=== PATIENT | female | born 2000 | race Asian ===

== ENCOUNTER 2020-01-28 10:51 | Observation (INO) ==
[2020-01-28] MEDS ORDERED: SODIUM CHLORIDE 0.9% 1000ML 1,000 ML IV ONE (11:38)
--- NOTE | 2020-01-28 11:46 | Emergency Department Note ---
History of Present Illness General Chief Complaint: Abdominal Pain Stated Complaint: ABD PAIN Source: patient Mode of arrival: ambulatory Limitations: no limitations History of Present Illness Provider Complaint: abdominal pain Onset (ago): 2 day(s) Pain Consistency: intermittent Location: periumbilical Radiation: RLQ Migration to: RLQ Severity: moderate Maximum Pain Intensity: 5 Current Pain Intensity: 5 Quality: + sharp Relieved By: + nothing Exacerbated By: + nothing Associated Symptoms: + anorexia Treatments prior to arrival: none This 20-year-old female patient presents the emergency department today as a referral from [facility] for evaluation of lower abdominal pain. Pt. states 2 days ago, she developed lower abdominal pain which this morning, radiates to the RLQ. Pt. states this morning, she had an elevated temperature of 37.8 C. Pt. does report decreased appetitie this morning and did not eat breakfast. She did have porridge for dinner last evening and tolerated this okay. She did have some mild nausea 2 days ago. Last bowel movement was 2 days ago. Last menstrual period was 2 months ago, the patient does occasionally get irregular menstrual periods due to PCOS. She is not sexually active. This morning, she states there was some suprapubic abdominal pain with urination. Patient has taken no medications for her pain. She denies any chest pain, dyspnea, nausea, vomiting, dysuria, hematuria, urinary frequency, abnormal vaginal discharge or bleeding, or other concerning symptoms. Home Medications Home Medications Medication Instructions Recorded Confirmed Type amoxicillin 500 mg PO BID 01/28/20 01/28/20 History Allergies Allergy/AdvReac Type Severity Reaction Status Date / Time lillian AdvReac Severe lips Verified 01/28/20 15:36 swell, red face Past Med/Surg History Medical History PCOS (polycystic ovarian syndrome) Social History Feels Safe at Home: Yes Smoking Status: Never smoker Review of Systems A total of 10 systems reviewed and were otherwise negative Physical Exam Vital Signs: Vital Signs - 24 hr 01/28/20 11:18 01/28/20 12:30 01/28/20 13:00 Temperature 37.4 C Temperature Source Oral Pulse Rate 94 H 115 H 118 H Pulse Rate [Right Finger] Pulse Rate from Sp O2 Sensor 112 H 117 H Pulse Rhythm [Righ t Finger] Pulse Strength [Ri ght Finger] Respiratory Rate 20 16 20 Respiratory Effort / Characteristics Non-Labored Sponta neous Respiratory Depth Normal Respiratory Patter n Regular Blood Pressure 124/69 133/77 129/68 Blood Pressure [Le ft Arm] Blood Pressure Magdalena n 87 100 86 Blood Pressure Magdalena n [Left Arm] Blood Pressure Pos ition [Left Arm] Pulse Oximetry 99 98 98 Oxygen Delivery Me thod Room Air Sepsis Recent Feve r Within 48 Hours No Sepsis New/Unexpla ined Change in Men meri Status No Sepsis Action Take n by Nursing No Action Required 01/28/20 13:01 01/28/20 13:30 01/28/20 14:00 Temperature Temperature Source Pulse Rate 116 H 112 H 106 H Pulse Rate [Right Finger] Pulse Rate from Sp O2 Sensor 116 H 114 H 108 H Pulse Rhythm [Righ t Finger] Pulse Strength [Ri ght Finger] Respiratory Rate 19 21 22 Respiratory Effort / Characteristics Respiratory Depth Respiratory Patter n Blood Pressure 126/75 121/68 Blood Pressure [Le ft Arm] Blood Pressure Magdalena n 81 87 Blood Pressure Magdalena n [Left Arm] Blood Pressure Pos ition [Left Arm] Pulse Oximetry 98 98 97 Oxygen Delivery Me thod Sepsis Recent Feve r Within 48 Hours Sepsis New/Unexpla ined Change in Men meri Status Sepsis Action Take n by Nursing 01/28/20 14:30 01/28/20 15:00 01/28/20 15:39 Temperature 37.5 C Temperature Source Oral Pulse Rate 109 H 100 H Pulse Rate [Right Finger] 114 H Pulse Rate from Sp O2 Sensor 108 H 101 H Pulse Rhythm [Righ t Finger] Regular Pulse Strength [Ri ght Finger] Normal Respiratory Rate 20 18 18 Respiratory Effort / Characteristics Non-Labored Sponta neous Respiratory Depth Normal Respiratory Patter n Regular Blood Pressure 129/73 125/70 Blood Pressure [Le ft Arm] 123/80 Blood Pressure Magdalena n 88 88 Blood Pressure Magdalena n [Left Arm] 94 Blood Pressure Pos ition [Left Arm] Lying Pulse Oximetry 97 99 99 Oxygen Delivery Me thod Room Air Sepsis Recent Feve r Within 48 Hours Sepsis New/Unexpla ined Change in Men meri Status Sepsis Action Take n by Nursing Physical Exam: VITALS: Vitals are noted on the nurse's note and reviewed by myself. Vital signs stable. GENERAL: This is a 20-year-old female, in no acute distress, nondiaphoretic, well-developed well-nourished. SKIN: The skin was without rashes, erythema, edema, or bruising. There is no tenting of the skin. Capillary refill less than 2 seconds. HEAD: Normocephalic atraumatic. EYES: Conjunctivae without injection, sclerae without icterus. NECK: Supple without nuchal rigidity. No lymphadenopathy. HEART: Regular rate and rhythm without murmurs gallops or rubs. LUNGS: Clear to auscultation bilaterally without wheezes, rales or rhonchi. No retractions or accessory muscle use. ABDOMEN: Positive bowel sounds x 4. Normal tympanic percussion. Mild right lower quadrant tenderness palpation. Abdomen is otherwise soft, nontender, without masses or organomegaly. [place] sign negative. No guarding or rebound tenderness. MUSCULOSKELETAL: No muscle atrophy, erythema, or edema noted. Full range of motion without joint tenderness in all extremities. No tenderness to palpation. Normal gait. Strength 5/5 throughout. NEURO: Patient was alert and oriented to person place and time. No focal neurological deficits. Course Course The patient was seen and evaluated as above. Patient offered analgesics and declined. An order was placed for continuous cardiac monitoring. The monitor shows a normal sinus rhythm at a rate of 84 bpm. IV access obtained, labs drawn. Patient hydrated with IV fluids. Labs reviewed by myself. Imaging performed and reviewed by myself and radiologist as noted. I discussed the findings with the patient at bedside. I discussed the case with Dr. Hernandez, general surgeon security operations center operator. He did agree to see and evaluate the patient for appendectomy. The patient was taken to the operating room with Dr. Hernandez. Please see surgeon dictation regarding ongoing management and care of this patient. Administered Medications Ioversol (Optiray 320 100ml) 94 ml IV ONCE PRN PRN Reason: Interaction Checking Stop: 02/01/20 14:17 Last Admin: 01/28/20 14:19 Dose: 94 ml Documented by: [id number] Discontinued Medications Sodium Chloride (Nss 1000ml) 1,000 mls @ 999 mls/hr IV .Q1H1M ONE Stop: 01/28/20 12:38 Last Infusion: 01/28/20 13:26 Dose: 0 mls/hr Documented by: [id number] Admin: 01/28/20 12:07 Dose: 999 mls/hr Documented by: [id number] Medical Decision Making Differential Diagnosis + peptic ulcer disease, + biliary pathology, + UTI, + obstruction, + mesenteric ischemia, + aortic pathology, + infections, + inflammatory bowel disease, + renal colic, + ectopic (female), + ovarian torsion (female), + tubo- ovarian abscesses (female), + pelvic inflammatory disease (female), + abdominal pain, + appendicitis, + calculus of kidney, + constipation, + diverticulitis, + endometriosis, + gastroenteritis, + pancreatitis and + small bowel obstruction Home Medications Current Medication List: was personally reviewed by me Laboratory Data Attestation: I reviewed the patient's lab results. Leukocytosis of 13,000. Coags normal. Renal, hepatic function and electrolytes without significant abnormality. Coags normal. Lipase 66. Urinalysis positive for 4+ ketones, but no clear evidence of infection. hCG negative. Result diagrams: 01/28/20 11:55 01/28/20 11:55 Lab Results 01/28/20 01/28/20 01/28/20 Range/Units 11:55 11:55 11:55 WBC 13.86 H (4.8-10.8) K/uL RBC 4.52 (4.2-5.4) M/uL Hgb 14.7 (12.0-16.0) g/dL Hct 42.4 (37-47) % MCV 93.8 (80-100) fL MCH 32.5 (25-34) pg MCHC 34.7 (32-36) g/dL RDW Std Deviation 43.0 (36.4-46.3) fL RDW Coeff of Kassi 12.5 (11.5-14.5) % Plt Count 155 (130-400) K/uL MPV 10.4 (7.4-10.4) fL Immature Gran % (Auto) 0.2 % Neut % (Auto) 96.5 % Lymph % (Auto) 2.3 % Weber % (Auto) 0.9 % Eos % (Auto) 0.0 % Baso % (Auto) 0.1 % Neut # (Auto) 13.38 H (1.4-6.5) K/uL Lymph # (Auto) 0.32 L (1.2-3.4) K/uL Weber # (Auto) 0.12 (0.11-0.59) K/uL Eos # (Auto) 0.00 (0-0.5) K/uL Baso # (Auto) 0.01 (0-0.2) K/uL Immature Gran # (Auto) 0.03 H (0.00-0.02) K/uL PT 10.9 (9.0-12.0) Seconds INR 1.0 (0.9-1.1) APTT 27.9 (21.0-31.0) Seconds PTT Ratio 1.0 Sodium 136 (136-145) mmol/L Potassium 3.9 (3.5-5.1) mmol/L Chloride 103 (98-107) mmol/L Carbon Dioxide 24 (21-32) mmol/L Anion Gap 9 (3-11) BUN 9 (7-18) mg/dl Creatinine 0.90 (0.6-1.2) mg/dl Est Cr Clr Drug Dosing 84.7 ml/min Est GFR ( Amer) 105.2 Est GFR (Non-Af Amer) 90.8 BUN/Creatinine Ratio 10.5 (10-20) Glucose 99 (70-99) mg/dl Calcium 9.5 (8.5-10.1) mg/dl Total Bilirubin 1.3 H (0.2-1) mg/dl AST 17 (15-37) U/L ALT 18 (12-78) U/L Alkaline Phosphatase 54 (45-117) U/L Total Protein 8.7 H (6.4-8.2) gm/dl Albumin 4.5 (3.4-5.0) gm/dl Globulin 4.2 H (2.5-4.0) gm/dl Albumin/Globulin Ratio 1.1 (0.9-2) Lipase 66 L (73-393) U/L HCG, Qual (Negative) Specimen Hemolysis Urine Color Urine Appearance (Clear) Urine pH (4.5-7.5) Ur Specific [place] (1.000-1.030) Urine Protein (Negative) Urine Glucose (UA) (Negative) Urine Ketones (Negative) Urine Blood (Negative) Urine Nitrite (Negative) Urine Bilirubin (Negative) Urine Urobilinogen (Negative) Ur Leukocyte Esterase (Negative) Urine WBC (Auto) (0-5) /hpf Urine RBC (Auto) (0-4) /hpf U Hyaline Cast (Auto) (0-5) /lpf U Epithel Cells (Auto) (0-5) /lpf Urine Bacteria (Auto) (Negative) 01/28/20 01/28/20 Range/Units 11:55 12:15 WBC (4.8-10.8) K/uL RBC (4.2-5.4) M/uL Hgb (12.0-16.0) g/dL Hct (37-47) % MCV (80-100) fL MCH (25-34) pg MCHC (32-36) g/dL RDW Std Deviation (36.4-46.3) fL RDW Coeff of Kassi (11.5-14.5) % Plt Count (130-400) K/uL MPV (7.4-10.4) fL Immature Gran % (Auto) % Neut % (Auto) % Lymph % (Auto) % Weber % (Auto) % Eos % (Auto) % Baso % (Auto) % Neut # (Auto) (1.4-6.5) K/uL Lymph # (Auto) (1.2-3.4) K/uL Weber # (Auto) (0.11-0.59) K/uL Eos # (Auto) (0-0.5) K/uL Baso # (Auto) (0-0.2) K/uL Immature Gran # (Auto) (0.00-0.02) K/uL PT (9.0-12.0) Seconds INR (0.9-1.1) APTT (21.0-31.0) Seconds PTT Ratio Sodium (136-145) mmol/L Potassium (3.5-5.1) mmol/L Chloride (98-107) mmol/L Carbon Dioxide (21-32) mmol/L Anion Gap (3-11) BUN (7-18) mg/dl Creatinine (0.6-1.2) mg/dl Est Cr Clr Drug Dosing ml/min Est GFR ( Amer) Est GFR (Non-Af Amer) BUN/Creatinine Ratio (10-20) Glucose (70-99) mg/dl Calcium (8.5-10.1) mg/dl Total Bilirubin (0.2-1) mg/dl AST (15-37) U/L ALT (12-78) U/L Alkaline Phosphatase (45-117) U/L Total Protein (6.4-8.2) gm/dl Albumin (3.4-5.0) gm/dl Globulin (2.5-4.0) gm/dl Albumin/Globulin Ratio (0.9-2) Lipase (73-393) U/L HCG, Qual Negative (Negative) Specimen Hemolysis Urine Color [place] Urine Appearance Clear (Clear) Urine pH 5.5 (4.5-7.5) Ur Specific [place] 1.020 (1.000-1.030) Urine Protein Negative (Negative) Urine Glucose (UA) Negative (Negative) Urine Ketones 4+ H (Negative) Urine Blood Trace H (Negative) Urine Nitrite Negative (Negative) Urine Bilirubin Negative (Negative) Urine Urobilinogen Negative (Negative) Ur Leukocyte Esterase Negative (Negative) Urine WBC (Auto) 1-5 (0-5) /hpf Urine RBC (Auto) 5-10 H (0-4) /hpf U Hyaline Cast (Auto) 1-5 (0-5) /lpf U Epithel Cells (Auto) >30 H (0-5) /lpf Urine Bacteria (Auto) Negative (Negative) Imaging Data Radiologist's Impression: ABDOMEN AND PELVIS CT WITH IV AND ORAL CONTRAST CT DOSE: 284.97 mGy.cm HISTORY: Right lower quadrant pain. TECHNIQUE: Multiaxial CT images of the abdomen and pelvis were performed following the use of intravenous and oral contrast. A dose lowering technique was utilized adhering to the principles of ALARA. COMPARISON STUDY: None. FINDINGS: The lung bases are clear. No pneumoperitoneum. No pneumatosis. No fractures within the visualized osseous structures. The liver, gallbladder, pancreas, spleen, adrenal glands, and kidneys are unremarkable. No hydronephrosis. No retroperitoneal lymphadenopathy. The bladder is unremarkable. Trace pelvic free fluid. The uterus and ovaries are within normal limits. No evidence for bowel obstruction. Fluid-filled and dilated appendix with mild periappendiceal fat stranding. The tip of the appendix measures up to 1 cm this is best seen on image 314 within the right lower quadrant. This is medial to the iliac vessels. This is consistent with acute appendicitis. No perforation or abscess. IMPRESSION: 1. Acute appendicitis. 2. Trace pelvic free fluid. ACT 112: Negative or not required by law. Electronically signed by: Eugenio Nunn M.D. 01/28/2020 2:33 PM Blood Pressure Blood Pressure Findings: Normal blood pressure MDM Narrative This 20-year-old female patient presents the emergency department today for evaluation of right lower quadrant abdominal pain. Work-up here in the ED is consistent with acute appendicitis. Patient does have a leukocytosis of 13,000. CT imaging consistent with acute appendicitis without perforation or abscess. Patient declined any narcotic analgesics while here in the department. She was hydrated with IV fluids. I discussed the case with Dr. Hernandez, general surgeon on-call. He did agree to see and evaluate the patient for appendectomy. Please see his dictation regarding ongoing management care of this patient. The chart was completed utilizing [employer] voice recognition software. Grammatical errors, random word insertions, pronoun errors, and incomplete sentences are an occasional consequence of this system due to software limitations, ambient noise, and hardware issues. Any formal questions or concerns about the content, text, or information contained within the body of this dictation should be directly addressed to the provider for clarification. Impression & Plan Appendicitis, acute Discharge Plan Visit Data *Final* Discharge Date/Time: 01/28/20 14:59 Chief Complaint: Abdominal Pain Stated Complaint: ABD PAIN ED Provider: Jhon Martinez ED Midlevel Provider: Cristin Bhatti Discharge Problem: Appendicitis, acute Patient Disposition: Admitted As Inpatient Condition: Good Discharge Instructions Interventions: ED Discharge Assessment Last Done: 01/28/20 14:59
[2020-01-28 12:10] LABS: Basophils # (auto) 0.01 K/uL (0-0.2); Basophils % (auto) 0.1 %; Hematocrit (blood only) 42.4 % (37-47); Hemoglobin 14.7 g/dL (12.0-16.0); Immature Granulocytes # (auto) 0.03 K/uL (0.00-0.02); Immature Granulocytes % (auto) 0.2 %; Lymphocytes # (auto) 0.32 K/uL (1.2-3.4); Lymphocytes % (auto) 2.3 %; Mean Corpuscular Hemoglobin 32.5 pg (25-34); Mean Corpuscular Hgb Conc 34.7 g/dL (32-36); Mean Corpuscular Volume 93.8 fL (80-100); Mean Platelet Volume 10.4 fL (7.4-10.4); Monocytes # (auto) 0.12 K/uL (0.11-0.59); Monocytes % (auto) 0.9 %; Neutrophils # (auto) 13.38 K/uL (1.4-6.5); Neutrophils % (auto) 96.5 %; Platelet Count 155 K/uL (130-400); RDW Coefficient of Variation 12.5 % (11.5-14.5); Red Blood Count 4.52 M/uL (4.2-5.4); White Blood Count 13.86 K/uL (4.8-10.8)
[2020-01-28 12:26] LABS: Partial Thromboplastin Time 27.9 Seconds (21.0-31.0); Prothrombin Time 10.9 Seconds (9.0-12.0)
[2020-01-28 12:38] LABS: Pregnancy Test, Serum Negative (Negative)
[2020-01-28 12:41] LABS: Albumin Globulin Ratio 1.1 (0.9-2); Albumin Level 4.5 gm/dl (3.4-5.0); BUN Creatinine Ratio 10.5 (10-20); Bilirubin,Total 1.3 mg/dl (0.2-1); Calcium 9.5 mg/dl (8.5-10.1); Creatinine Clr Calc Pharmacy 84.7 ml/min; Est GFR (African American) 105.2; Est GFR (Non-African American) 90.8; Globulin 4.2 gm/dl (2.5-4.0); Total Protein 8.7 gm/dl (6.4-8.2)
[2020-01-28 12:44] LABS: Appearance Urine Clear (Clear); Bacteria Urine Automated Negative (Negative); Bilirubin Urine Negative (Negative); Blood Urine Trace (Negative); Color Urine Orange; Epithelial Cell Urine Auto >30 /lpf (0-5); Glucose Urine UA Negative (Negative); Ketones Urine 4+ (Negative); Leukocyte Esterase Urine Negative (Negative); Nitrite Urine Negative (Negative); Protein Urine Negative (Negative); Urobilinogen Urine Negative (Negative); pH Urine 5.5 (4.5-7.5)
[2020-01-28 13:01] LABS: Potassium 3.9 mmol/L (3.5-5.1)
[2020-01-28] MEDS ORDERED: IOVERSOL 100ml IV PRN (14:18)
--- NOTE | 2020-01-28 14:34 | CT Scan Report ---
ABDOMEN AND PELVIS CT WITH IV AND ORAL CONTRAST CT DOSE: 284.97 mGy.cm HISTORY: Right lower quadrant pain. TECHNIQUE: Multiaxial CT images of the abdomen and pelvis were performed following the use of intrave nous and oral contrast. A dose lowering technique was utilized adhering to the principles of ALARA. COMPARISON STUDY: None. FINDINGS: The lung bases are clear. No pneumoperitoneum. No pneumatosis. No fractures within the visu alized osseous structures. The liver, gallbladder, pancreas, spleen, adrenal glands, and kidneys are unremarkable. No hydronephrosis. No retroperitoneal lymphadenopathy. The bladder is unremarkable. Tra ce pelvic free fluid. The uterus and ovaries are within normal limits. No evidence for bowel obstruct ion. Fluid-filled and dilated appendix with mild periappendiceal fat stranding. The tip of the append ix measures up to 1 cm this is best seen on image 314 within the right lower quadrant. This is medial to the iliac vessels. This is consistent with acute appendicitis. No perforation or abscess. IMPRESSION: 1. Acute appendicitis. 2. Trace pelvic free fluid. ACT 112: Negative or not required by law. Electronically signed by: Eugenio Nunn M.D. 01/28/2020 2:33 PM
--- NOTE | 2020-01-28 15:08 | History & Physical Report ---
Date of Service January 28, 2020 Assessment & Plan (1) Appendicitis, acute: IV mefoxin IVF to OR for lap appendectomy Present on Admission?: Yes History of Present Illness Primary Care Provider: [facility] This is a 20-year-old female patient with lower abdominal pain. She said it began 2 days ago and is mainly RLQ. She has had an elevated temperature of 37.8 C. She also has anorexia this morning and did not eat breakfast. She did has nausea andher last bowel movement was 2 days ago. Last menstrual period was 2 months ago, the patient does occasionally get irregular menstrual periods due to PCOS. She is not sexually active. She denies any chest pain, dyspnea, nausea, vomiting, dysuria, hematuria, urinary frequency, abnormal vaginal discharge or bleeding, or other concerning symptoms. Allergies Allergy/AdvReac Type Severity Reaction Status Date / Time lillian AdvReac Severe lips Unverified 01/28/20 12:25 swell, red face Home Medications Home Medications Medication Instructions Recorded Confirmed Type amoxicillin 500 mg PO BID 01/28/20 01/28/20 History Past Med/Surg History Medical History PCOS (polycystic ovarian syndrome) Social History Feels Safe at Home: Yes Smoking Status: Never smoker Review of Systems + fever and + anorexia; no chills no problem reported no problem reported no cough and no dyspnea no chest pain + abdominal pain and + nausea; no vomiting no dysuria no back pain no rash no problem reported no problem reported + problem reported PCOS no problem reported no problem reported Physical Exam Constitutional: well developed and well nourished Eyes: PERRL, conjunctivae normal, anicteric sclerae Neck: trachea midline Respiratory: normal respiratory effort, lungs clear to auscultation Cardiovascular: RRR, no murmur, no edema Gastrointestinal (Abdomen): Inspection/Auscultation: abdomen normal to inspection and normal bowel sounds; abdomen not distended Percussion/Palpation: + abdomen tender and abdomen soft; no guarding and abdomen not rigid Skin: no rashes, warm and dry Psychiatric: Orientation: alert and oriented x 3 Lymphatic: no lymphadenopathy ASA Classification ASA [id number] Results & Data Vital Signs (Past 12 Hours) Vital Signs Temp Pulse Resp BP Pulse Ox 01/28/20 14:00 106 H 22 121/68 97 01/28/20 13:30 112 H 21 126/75 98 01/28/20 13:01 116 H 19 98 01/28/20 13:00 118 H 20 129/68 98 01/28/20 12:30 115 H 16 133/77 98 01/28/20 11:18 37.4 C 94 H 20 124/69 99 Diagnostic Findings ABDOMEN AND PELVIS CT WITH IV AND ORAL CONTRAST CT DOSE: 284.97 mGy.cm HISTORY: Right lower quadrant pain. TECHNIQUE: Multiaxial CT images of the abdomen and pelvis were performed following the use of intravenous and oral contrast. A dose lowering technique was utilized adhering to the principles of ALARA. COMPARISON STUDY: None. FINDINGS: The lung bases are clear. No pneumoperitoneum. No pneumatosis. No fractures within the visualized osseous structures. The liver, gallbladder, pancreas, spleen, adrenal glands, and kidneys are unremarkable. No hydronephrosis. No retroperitoneal lymphadenopathy. The bladder is unremarkable. Trace pelvic free fluid. The uterus and ovaries are within normal limits. No evidence for bowel obstruction. Fluid-filled and dilated appendix with mild periappendiceal fat stranding. The tip of the appendix measures up to 1 cm this is best seen on image 314 within the right lower quadrant. This is medial to the iliac vessels. This is consistent with acute appendicitis. No perforation or abscess. IMPRESSION: 1. Acute appendicitis. 2. Trace pelvic free fluid.
[2020-01-28] MEDS ORDERED: cefOXitin 1,000 MG/50 ML BAG IV ONE (15:14)
[2020-01-28] MEDS ORDERED: NEOSTIGMINE METHYLSULFATE 5 MG/5 ML SYR ONE (15:30)
[2020-01-28] MEDS ORDERED: DEXAMETHASONE SOD INJ 4 MG/ML VIAL ONE (15:30)
[2020-01-28] MEDS ORDERED: MIDAZOLAM HCL 1 MG/ML 2ML VIAL ONE (15:30)
[2020-01-28] MEDS ORDERED: ONDANSETRON INJ 2 MG/ML 2 ML VIAL ONE (15:30)
[2020-01-28] MEDS ORDERED: ROCURONIUM BROMIDE 10 MG/ML 5 ML VIAL IV ONE (15:30)
[2020-01-28] MEDS ORDERED: PROPOFOL IV EMULSION 10 MG/ML 20 ML VIAL IV ONE (15:30)
[2020-01-28] MEDS ORDERED: GLYCOPYRROLATE 0.2 MG/ML VIAL ONE (15:30)
[2020-01-28] MEDS ORDERED: LIDOCAINE HCL 2% 2 ML VIAL/AMP(20MG/ML) INFIL ONE (15:30)
[2020-01-28] MEDS ORDERED: fentaNYL citrate 100 MCG/2 ML VIAL ONE ×2 (15:31→16:37)
[2020-01-28] MEDS ORDERED: LARYING-O-JET KIT (LTA) ONE (15:33)
[2020-01-28] MEDS ORDERED: EPINEPHrine INJ 1 MG/ML AMP ONE (15:37)
[2020-01-28] MEDS ORDERED: BUPIVACAINE 0.5 % 5 MG/1 ML MPF 30ML VIAL ONE (15:37)
--- NOTE | 2020-01-28 15:49 | Anesthesiology Consultation ---
Date of Service January 28, 2020 Assessment & Plan Chart Review Chart Review: Acceptable Risk for Surgery Consults Requested none History Surgery Operation Date: 01/28/20 14:45 Proposed Procedures p Laparoscopic Appendectomy - Alexei Hernandez MD Height/Weight Height: 5 ft 5 in Weight: 54.7 kg Allergies Allergy/AdvReac Type Severity Reaction Status Date / Time lillian AdvReac Severe lips Verified 01/28/20 15:36 swell, red face Medications Home Medications Medication Instructions Recorded Confirmed Last Taken amoxicillin 500 mg PO BID 01/28/20 01/28/20 01/28/20 06:00 Active Medications Generic Name Dose Route Start Last Admin Trade Name Freq PRN Reason Stop Dose Admin Ioversol 94 ml 01/28/20 14:18 01/28/20 14:19 Optiray 320 100ml IV 02/01/20 14:17 94 ml ONCE PRN Administration Interaction Checking NPO Date Last Intake of Fluids: 01/27/20 Time Last Intake of Fluids: 17:00 Date Last Intake of Solids: 01/27/20 Time Last Intake of Solids: 17:00 Past Medical History Medical History PCOS (polycystic ovarian syndrome) Social History Smoking Status: Never smoker Physical Exam Vital Signs Last Vital Signs Temp 37.5 C 01/28/20 15:39 Pulse 114 H 01/28/20 15:39 Resp 18 01/28/20 15:39 BP 123/80 01/28/20 15:39 Pulse Ox 99 01/28/20 15:39 Testing Laboratory Results 01/28/20 11:55 01/28/20 11:55 PT 10.9 Seconds (9.0-12.0) 01/28/20 11:55 INR 1.0 (0.9-1.1) 01/28/20 11:55 APTT 27.9 Seconds (21.0-31.0) 01/28/20 11:55 Urine Color [place] 01/28/20 12:15 Urine Appearance Clear (Clear) 01/28/20 12:15 Urine pH 5.5 (4.5-7.5) 01/28/20 12:15 Ur Specific [place] 1.020 (1.000-1.030) 01/28/20 12:15 Urine Protein Negative (Negative) 01/28/20 12:15 Urine Glucose (UA) Negative (Negative) 01/28/20 12:15 Urine Ketones 4+ (Negative) H 01/28/20 12:15 Urine Nitrite Negative (Negative) 01/28/20 12:15 Ur Leukocyte Esterase Negative (Negative) 01/28/20 12:15 Urine WBC (Auto) 1-5 /hpf (0-5) 01/28/20 12:15 Urine RBC (Auto) 5-10 /hpf (0-4) H 01/28/20 12:15 U Hyaline Cast (Auto) 1-5 /lpf (0-5) 01/28/20 12:15 U Epithel Cells (Auto) >30 /lpf (0-5) H 01/28/20 12:15 Urine Bacteria (Auto) Negative (Negative) 01/28/20 12:15
[2020-01-28] MEDS ORDERED: METOCLOPRAMIDE HCL INJ 5 MG/ML 2 ML VIAL IV PRN (15:50)
[2020-01-28] MEDS ORDERED: KETOROLAC 30 MG/ML VIAL IV PRN (15:50)
[2020-01-28] MEDS ORDERED: HYDROmorphone INJ 2 MG/ML SYR/VIAL IV PRN (15:50)
[2020-01-28] MEDS ORDERED: fentaNYL citrate 100 MCG/2 ML VIAL IV PRN (15:50)
[2020-01-28] MEDS ORDERED: ONDANSETRON INJ 2 MG/ML 2 ML VIAL IV PRN ×2 (15:50→18:32)
[2020-01-28] MEDS ORDERED: PROMETHAZINE HCL 12.5 MG in SODIUM CHLORIDE 0.9% 50 ML IV PRN ×2 (15:50→18:32)
[2020-01-28] MEDS ORDERED: ATROPINE SULFATE 0.1 MG/ML 10ML SYR IV PRN (15:50)
[2020-01-28] MEDS ORDERED: ePHEDrine sulfate 50 MG/ML AMP IV PRN (15:50)
--- NOTE | 2020-01-28 16:59 | Post Operative Brief Note ---
Immediate Post Op Note v1 Date of Surgery January 28, 2020 Pre & Post Diagnosis Operation Date: 01/28/20 14:45 Pre-Op Diagnosis: Appendicitis, acute Post-Op Diagnosis: Appendicitis, acute I identified the patient and participated in the time-out.: Yes Procedure Operation Date: 01/28/20 14:45 Actual Procedures p Laparoscopic Appendectomy(Not Applicable) - Alexei Hernandez MD Surgeon Alexei Hernandez MD Police Patrol Officer None Estimated Blood Loss 3 Findings Consistent with Post-Op Diagnosis
[2020-01-28] MEDS ORDERED: MoRPHine SULFATE 10 MG/ML CARP/VIAL IV PRN (18:32)
[2020-01-28] MEDS ORDERED: MoRPHine SULFATE 4 MG/ML 1 ML CARP\\VIAL IV PRN (18:32)
[2020-01-28] MEDS ORDERED: OXYCODONE/ACETAMINOPHEN 5mg/325mg TAB PO PRN ×2 (18:32)
[2020-01-28] MEDS ORDERED: ACETAMINOPHEN 325 MG TAB PO PRN (18:32)
[2020-01-28] MEDS ORDERED: MoRPHine SULFATE 2 MG/ML CARP IV PRN (18:32)
--- NOTE | 2020-01-28 19:09 | Anesthesiology Progress Note ---
Date of Service January 28, 2020 Anesthesia Post Procedure Vital Signs Vital Signs: Temp Pulse Pulse Pulse Resp BP BP 01/28/20 18:34 36.9 C 98 H 18 114/72 01/28/20 17:55 36.9 C 92 H 16 119/73 01/28/20 17:45 95 H 20 130/78 01/28/20 17:35 99 H 18 131/74 01/28/20 17:27 38.2 C H 113 H 20 135/91 01/28/20 15:39 37.5 C 114 H 18 123/80 01/28/20 15:00 100 H 18 125/70 01/28/20 14:30 109 H 20 129/73 01/28/20 14:00 106 H 22 121/68 01/28/20 13:30 112 H 21 126/75 01/28/20 13:01 116 H 19 01/28/20 13:00 118 H 20 129/68 01/28/20 12:30 115 H 16 133/77 01/28/20 11:18 37.4 C 94 H 20 124/69 Pulse Ox 01/28/20 18:34 98 01/28/20 17:55 96 01/28/20 17:45 100 01/28/20 17:35 100 01/28/20 17:27 100 01/28/20 15:39 99 01/28/20 15:00 99 01/28/20 14:30 97 01/28/20 14:00 97 01/28/20 13:30 98 01/28/20 13:01 98 01/28/20 13:00 98 01/28/20 12:30 98 01/28/20 11:18 99 Transfer of Care Handoff Completed per policy Notes Mental Status: alert / awake / arousable and participated in evaluation Patient Amnestic to Procedure: Yes Nausea / Vomiting: adequately controlled Pain: adequately controlled Airway Patency, RR, SpO2: stable & adequate BP & HR: stable & adequate Hydration State: stable & adequate Anesthetic Complications: no major complications apparent
[2020-01-28] MEDS: LACTATED RINGER'S 1,000 ML IV SCH (19:45)
--- NOTE | 2020-01-28 23:36 | Operative Report (OR) ---
DATE OF OPERATION: 01/28/2020 PREOPERATIVE DIAGNOSIS: Acute appendicitis. POSTOPERATIVE DIAGNOSIS: Acute appendicitis. PROCEDURE PERFORMED: Laparoscopic appendectomy. SURGEON: Alexei Hernandez MD. AGRICULTURAL EQUIPMENT TEST ENGINEER: None. ANESTHESIA: General endotracheal with 0.5% Marcaine with epinephrine local. ESTIMATED BLOOD LOSS: 3 mL. SPECIMENS: Appendix to pathology. INDICATION FOR PROCEDURE: This is a 20-year-old female seen in the ED today with complaints of a day and a half of abdominal pain. She had a CT scan, which shows an obvious early acute appendicitis with some inflammation and a dilated tip of her appendix. We talked to her in detail about this and recommended a laparoscopic appendectomy. We went over the risks of an open procedure, abscess requiring drainage or reoperation, bleeding and wound problems. She understands this and wished to proceed. DESCRIPTION OF PROCEDURE: The patient was taken to the OR and underwent excellent general endotracheal anesthesia. Abdomen was prepped and draped in normal sterile fashion. A transverse supraumbilical incision was made and a 5 trocar and camera were used to enter the peritoneal cavity with upper traction with towel clamps. The peritoneal cavity was entered, good pneumoperitoneum achieved to 15 mmHg pressure. A 5 suprapubic, a 5 right upper quadrant and a 12 left lower quadrant ports were placed in normal fashion. Once these were in place, the patient was placed in head down and rolled to the left. The cecum was grasped with right upper quadrant Mika clamp. The appendix was identified. There was almost gangrenous tip of her appendix. This was grasped and put on tension. Harmonic scalpel was used to take down the mesoappendix with minimal bleeding. A TED 45 gaviria load was then used to transect the appendix at its base. Appendix was brought out through an Endobag and sent for pathologic evaluation. Staple line looked intact. No bleeding. The abdomen was irrigated out with 300 mL of fluid. This was suctioned out. Ports were then removed. Pneumoperitoneum was decompressed. 0 Vicryl was used to close the fascial defect in the left lower quadrant incision. Interrupted Vicryl was used to close the skin. After that, 0.5% Marcaine with epinephrine local was used to create a local field block. Steri-Strips and benzoin were used to reinforce the incision. Sterile dressings were applied. The patient tolerated the procedure well with no complications, sent to post-recovery for a period of observation and be sent to floor for the rest of her care. I attest to the content of the Intraoperative Record and any orders documented therein. Any exception s are noted below.
[2020-01-29] MEDS: LACTATED RINGER'S 1,000 ML IV SCH (04:19)
--- NOTE | 2020-01-29 10:52 | Surgery Progress Note ---
Date of Service January 29, 2020 Assessment & Plan (1) Appendicitis, acute: discharge today Subjective doing well Review of Systems Constitutional: no fever and no chills Gastrointestinal: + abdominal pain (mild) Physical Exam Gastrointestinal (Abdomen): Inspection/Auscultation: abdomen normal to inspection and normal bowel sounds; abdomen not distended Percussion/Palpation: + abdomen tender Results & Data Vital Signs (Past 12 Hours) Vital Signs Temp Pulse Pulse Resp BP BP Pulse Ox 01/29/20 07:28 36.8 C 58 L 14 97/62 L 98 01/29/20 04:00 36.5 C 61 16 100/63 98 01/28/20 23:51 36.7 C 67 16 103/65 97 (1) Appendicitis, acute Acute appendicitis type: with localized peritonitis Appendicitis abscess presence: without abscess Appendicitis gangrene presence: without gangrene Appendicitis perforation presence: without perforation Qualified Code(s): K35.30 - Acute appendicitis with localized peritonitis, without perforation or gangrene
--- NOTE | 2020-01-29 23:13 | Discharge Summary (DS) ---
ATTENDING PHYSICIAN: Alexei Hernandez MD DIAGNOSIS: Acute appendicitis. PROCEDURE PERFORMED: Laparoscopic appendectomy on 01/29/2020. HISTORY OF PRESENT ILLNESS: This is a 20-year-old female who was admitted through the ED with acute abdominal pain. She had a CT scan showing acute appendicitis. She will be taken to the OR for laparoscopic appendectomy. HOSPITAL COURSE: The patient was admitted through the ED, placed on IV fluids, IV antibiotics, taken to the OR for uncomplicated laparoscopic appendectomy. She tolerated it well. Postoperatively, she was maintained with good pain control, tolerated diet, will be discharged home on postoperative day #1. DISCHARGE MEDICATIONS: Percocet 1 tablet p.o. q. 6 hours p.r.n. pain, amoxicillin 500 p.o. b.i.d. DIET: Regular diet as tolerated. Follow up in 2 weeks in my office. ACTIVITIES: No strenuous activity.
== END 2020-01-29 13:29 | disposition home or self-care (01) ==
LOC: ED 10:51 → OR 14:59 → 3W 14:59